=== PATIENT | female | born 1935 | race Two or more races ===

== ENCOUNTER → 2017-08-20 | Outpatient (CLI) | payer MEDICARE, BC ==
--- NOTE | 2017-08-20 11:11 | RAD ---
Left wrist, 3 views, 08/20/2017: History: Follow-up wrist fracture Comparison is made to a study from 08/13/2017. The current images were obtained through a radiopaque cast. Again noted is a mildly impacted fracture of the distal radius with intra-articular extension. The fracture fragments appear to be unchanged in position. A small ulnar styloid fracture is also noted. The carpal bones are unremarkable. IMPRESSION: Unchanged, mildly impacted distal radial fracture.
--- NOTE | 2017-08-20 11:46 | RAD ---
Left elbow, 3 views, 08/20/2017: History: Fall, elbow pain There is minimal spurring at the elbow joint. No recent fracture or dislocation is identified. No joint effusion is evident. IMPRESSION: No acute left elbow abnormality is detected.
== END | disposition home or self-care (01) ==
LOC: RAD 09:03
PROVIDERS: ATTEND Nurse Practitioner Gerontology
DX: S62.102D Fracture of unspecified carpal bone, left wrist, subsequent encounter for fracture with routine healing (principal)
CPT/HCPCS: 73080; 73110

== ENCOUNTER → 2018-05-22 | Outpatient (CLI) | payer MEDICARE, BC ==
--- NOTE | 2018-05-24 10:50 | RAD ---
DATE: 05/22/2018 EXAM: MAMMO BETO SCREENING BILATERAL HISTORY: routine screening evaluation COMPARISON: 06/24/2015, 08/23/2009, 08/05/2008, 03/25/2014 Bilateral CC and MLO views of the breasts were performed. Bilateral breast tomosynthesis was performed in CC and MLO projections. This study was interpreted with the benefit of Computerized Aided Detection (CAD). The breast parenchyma shows scattered fibroglandular densities. Breast parenchyma level B. FINDINGS: Skin markers overlie the breasts. No suspicious masses, microcalcifications or architectural distortion is present to suggest malignancy in either breast. Multiple well-circumscribed benign type masses are seen bilaterally. The visualized axillae are unremarkable. IMPRESSION: No mammographic evidence of malignancy. BI-RADS CATEGORY: 2 BENIGN FINDING(S) RECOMMENDED FOLLOW-UP: 12M 12 MONTH FOLLOW-UP Annual screening mammography is recommended, unless clinically indicated sooner based on symptoms or change in physical exam. PQRS compliance statement: Patient information was entered into a reminder system with a target due date for the next mammogram. Mammography is a sensitive method for finding small breast cancers, but it does not detect them all and is not a substitute for careful clinical examination. A negative mammogram does not negate a clinically suspicious finding and should not result in delay in biopsying a clinically suspicious abnormality. "Our facility is accredited by the [employer] Mammography Program."
== END | disposition home or self-care (01) ==
LOC: MAMMO 10:16
PROVIDERS: ATTEND Family Medicine
DX: Z12.31 Encounter for screening mammogram for malignant neoplasm of breast (principal); E78.5 Hyperlipidemia, unspecified
CPT/HCPCS: 77063; 77067

== ENCOUNTER → 2019-05-20 | Outpatient (CLI) | payer MEDICARE, BC ==
--- NOTE | 2019-05-22 17:59 | RAD ---
DATE: 05/20/2019 7:38 AM EXAM: MAMMO BETO SCREENING BILATERAL HISTORY: routine screening evaluation. COMPARISON: Prior mammographic imaging 05/22/2018, 06/24/2015, 03/25/2014 Bilateral CC and MLO views of the breasts were performed. Bilateral breast tomosynthesis was performed in CC and MLO projections. This study was interpreted with the benefit of Computerized Aided Detection (CAD). FINDINGS: Breast Density: SCATTERED The breast parenchyma shows scattered fibroglandular densities. Breast parenchyma level B Benign calcifications are present. The parenchymal pattern appears stable. Nodular density in the lateral/superior left breast is stable to 06/24/2015. No suspicious masses, microcalcifications or architectural distortion is present to suggest malignancy in either breast. The visualized axillae are unremarkable. IMPRESSION: No mammographic evidence of malignancy. BI-RADS CATEGORY: 2 BENIGN FINDING(S) RECOMMENDED FOLLOW-UP: 12M 12 MONTH FOLLOW-UP Annual screening mammography is recommended, unless clinically indicated sooner based on symptoms or change in physical exam. PQRS compliance statement: Patient information was entered into a reminder system with a target due date for the next mammogram. Mammography is a sensitive method for finding small breast cancers, but it does not detect them all and is not a substitute for careful clinical examination. A negative mammogram does not negate a clinically suspicious finding and should not result in delay in biopsying a clinically suspicious abnormality. "Our facility is accredited by the [employer] Mammography [employer]."
== END | disposition home or self-care (01) ==
LOC: MAMMO 07:31
PROVIDERS: ATTEND Family Medicine
DX: Z12.31 Encounter for screening mammogram for malignant neoplasm of breast (principal); N64.89 Other specified disorders of breast
CPT/HCPCS: 77063; 77067

== ENCOUNTER → 2020-07-06 | Outpatient (CLI) | payer MEDICARE, BC ==
--- NOTE | 2020-07-13 17:39 | RAD ---
BILATERAL SCREENING MAMMOGRAM, 3-D History: Routine screening. Comparison: 03/25/2014, 06/24/2015, 05/22/2018, 05/20/2019. Technique: MLO and CC digital tomosynthesis (3D) images obtained. Radiologist reviewed these images on dedicated workstation. Findings: Breast Tissue Density B : There are scattered areas of fibroglandular density. There are no dominant masses, suspicious microcalcifications, or architectural distortion. IMPRESSION: No mammographic evidence of malignancy. Recommend routine screening. BI-RADS category 1: Negative. The images were reviewed with computer-aided detection. Patient information is entered into reminder system with a target due date for the next screening mammogram. Mammography is the most sensitive method for finding small breast cancers, but it does not detect them all and is not a substitute for careful clinical examination. A negative mammogram does not negate a clinically suspicious finding and should not result in delay in biopsying a clinically suspicious abnormality. "Our facility is accredited by the [employer] Mammography [employer]." Electronically signed by: Marty Dow MD (07/13/2020 5:36 PM) [id number]
== END ==
LOC: MAMMO 13:38
PROVIDERS: ATTEND Family Medicine
DX: Z12.31 Encounter for screening mammogram for malignant neoplasm of breast (principal)
CPT/HCPCS: 77063; 77067

== ENCOUNTER → 2021-03-10 | Outpatient (CLI) | payer MEDICARE, BC ==
--- NOTE | 2021-03-10 14:42 | KCIC ---
XR HAND_RIGHT 3 VIEWS History: Reason: MASS ON PALM OF RT HAND 1 MONTH (MARKED W BB), NO INJURY / Spl. Instructions: / His tory: Technique: 3 views right hand Comparison: None. Findings: Normal alignment. Posttraumatic deformity of the fourth distal tuft. Marker was placed overlying the third metacarpal head. Mild to moderate curve osteophytes. Advanced d istal phalangeal degenerative changes involving the second and third joints. Mild first carpometacarp al DJD. Impression: 1. 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 2. Palpable abnormality may correspond with third metacarpal head osteophyte. If concern for soft ti ssue lesion, MRI can further evaluate. Electronically signed by: Zain Nevarez DO (03/10/2021 2:40 PM) [facility]
== END ==
LOC: KCIC 10:53
PROVIDERS: ATTEND Family Medicine
DX: M18.11 Unilateral primary osteoarthritis of first carpometacarpal joint, right hand (principal); M25.741 Osteophyte, right hand; R22.31 Localized swelling, mass and lump, right upper limb
CPT/HCPCS: 73130

== ENCOUNTER → 2021-05-18 | Outpatient (CLI) | payer MEDICARE, BC ==
--- NOTE | 2021-05-18 11:17 | RAD ---
EXAM: CT Abdomen without IV contrast CLINICAL HISTORY: Reason: RIB PAIN ON LEFT SIDE / Spl. Instructions: hit left flank on table / Histor y: COMPARISON: None. TECHNIQUE: Helical CT of the abdomen was performed without intravenous contrast. Axial, coronal and s agittal reformatted images were generated. ---PQRS compliance statement - One or more of the following individualized dose reduction techniques were utilized for this study: 1. Automated exposure control 2. Adjustment of the mA and/or kV according to patient size 3. Use of iterative reconstruction technique--- FINDINGS: Lack of intravenous contrast limits evaluation of solid organs, vasculature, and lymph nodes. Lung bases: 4 mm left lower lobe nodule (series 2 image 3). 7 mm left lower lobe lung nodule (series 2 image 19) is seen. Interstitial prominence lung bases. Abdomen: High density material dependently within the gallbladder likely sludge. Liver, spleen, adrenal glands and pancreas are unremarkable. Left upper pole renal cyst. No hydronephrosis. No hydroureter. Visualized portions of the small and l arge bowel are grossly normal in caliber without bowel obstruction. Colonic diverticula are seen. No abdominal lymphadenopathy. There is a nondisplaced fracture of the left 10th rib laterally. IMPRESSION: 1. Nondisplaced lateral left 10th rib fracture. 2. No retroperitoneal, perisplenic or perinephric hematoma 3. High density material dependently within the gallbladder, likely sludge. 4. Multiple lung nodules, measuring up to 7 mm in the left lung base. Per Fleischner Society guideli amos for incidentally found solid nodule measuring 6-8 mm, initial CT follow-up is recommended in 6-12 months. Additional follow-up can be considered in 18-24 month based on risk factors. Electronically signed by: Dayton Murry MD (05/18/2021 11:15 AM) [facility]
== END ==
LOC: CT 09:46
PROVIDERS: ATTEND Family Medicine
DX: R91.8 Other nonspecific abnormal finding of lung field (principal); N28.1 Cyst of kidney, acquired; R07.81 Pleurodynia
CPT/HCPCS: 74150

== ENCOUNTER → 2021-08-04 | Outpatient (CLI) | payer MEDICARE, BC ==
--- NOTE | 2021-08-04 13:09 | RAD ---
History: 86-year-old asymptomatic female patient presents for routine screening mammogram. PROCEDURE: 3-D tomosynthesis was performed of the breasts bilaterally. 2-D C-view craniocaudal and mediolateral oblique digital mammograms were also generated. The images were also evaluated with [employer] puter-aided detection and the CAD results were analyzed. Previous: Bilateral mammogram from 07/06/2020 and priors. FINDINGS: Density level B: There are scattered fibroglandular densities. There are no suspicious masses, suspic ious microcalcifications or areas of architectural distortion.Nodular calcifications in the upper out er left breast is redemonstrated. Benign stable vascular calcifications are seen in both breasts IMPRESSION: Benign mammogram. Patient information was entered into the [id number] reminder system with a target due date for the next screening mammogram . Routine annual screening mammogram in one year ad vised. BI-RADS Category 2: Benign. A mammogram does not have 100% sensitivity and therefore a negative imaging study should not delay fu rther work up of a suspicious abnormality. PQRS compliance statement: Patient information was entered into the [employer] reminder system with a ta rget due date for the next screening mammogram . Routine annual screening mammogram in one year advis ed. "Our facility is accredited by the [employer] Mammography [employer]." Electronically signed by: Trina Corrigan MD (08/04/2021 1:06 PM) [id number]
== END ==
LOC: MAMMO 10:18
PROVIDERS: ATTEND Family Medicine
DX: Z12.31 Encounter for screening mammogram for malignant neoplasm of breast (principal)
CPT/HCPCS: 77063; 77067